=== PATIENT | female | born 1965 | race Caucasian/White ===

== ENCOUNTER 2025-09-13 12:28 | Emergency (ER) | payer OTHER, SELFPAY ==
[2025-09-13] VITALS (10 sets, daily range): BP systolic 127–165; BP diastolic 80–104; BMI 25.6
--- NOTE | 2025-09-13 15:45 | ED.GENMED ---
History of Present Illness
General
Chief Complaint: Headache
Source: patient
Exam Limitations: none
Time Seen by Provider: 09/13/25 14:45
Nursing documentation reviewed up to this point in time: agreed with
History of Present Illness
History of Present Illness:
Patient is a 59-year-old female who presents today for evaluation. Patient has had a headache off and on for the past 1 month. She has been seen by her family doctor several times for evaluation. She completed 2 Z-Paks reports she was treated for
possible sinus infection. She was also given a dose of sumatriptan last night and instructed to take 2 tablets proceeded. She continues to complain of pain to the left head behind her eye. She does have light sensitivity. She denies any trauma.
She denies any vomiting. She does feel some pressure in her cheek. She denies any fever chills nasal congestion. No pain with chewing. No visual disturbance.
Phy Exam
General Physical Exam
General Presentation: no apparent distress
General age: appears stated age
General Skin: warm and dry
General Habitus: normal
General Mental: alert
General Hydration: appears well hydrated
ENT Exam
ENT Exam: EOMI
Eye Exam
Eye Exam: PERRL and EOMI
Eye Exam General: PERRL: bilateral and EOM intact: bilateral
Pupil Exam: Bilateral: round and reactive
Neurological Exam
Neurological Exam: alert, oriented x3, no motor deficits, normal reflexs and no sensory deficits
Jusuts Coma Scale
Eye Opening: Spontaneous
Verbal Response: Oriented
Motor Response: Obeys Commands
GCS Total Score: 15
Cerebellar
Cerebellar Function: normal finger to nose
Musculoskeletal Exam
Musculoskeletal Exam: full ROM
Skin Exam
Skin Exam: normal color and warm/dry
Psychiatric Exam
Psychiatric Exam: normal mood/affect
Course
Orders/Labs/Results
Orders:
Orders
09/13/25 15:43
CT Head W/o Iv Contrast Urgent
Comment:
Reason For Exam: left sided headache
09/13/25 15:44
IV Insert/Care/Rem.- Treatment PRN
0.9% Sodium Chloride 1000 ml [Nss] 1,000 ml IV BOLUS
Diphenhydramine [Benadryl] 25 mg IV NOW STA
Metoclopramide [Reglan] 10 mg IV NOW STA
09/13/25 16:30
Complete Blood Count/With Diff Urgent
Comprehensive Metabolic Panel Urgent
09/13/25 17:43
Ketorolac [Toradol] 15 mg IV NOW STA
09/13/25 19:13
Prednisone [Deltasone] 60 mg PO NOW STA
Rizatriptan Orally Disintegrat [Maxalt Fine Patcher (Orally Disintegrating)] 10 mg PO ONCE ONE
09/13/25 19:28
Valproate Sodium [Depacon] 1,000 mg 0.9% Sodium Chloride 50 ml [Nss] 50 ml IV NOW
Abnormal Lab Results
09/13/25
16:30
MCH 25.3 L pg
(27.0-31.0)
MCHC 30.9 L g/dL
(33.0-37.0)
RDW 14.8 H %
(11.5-14.5)
MPV 11.3 H fL
(7.4-10.4)
Lymphocytes % 19.3 L %
(20.5-51.1)
Sodium 134 L mmol/L
(135-145)
Glucose 100 H mg/dl
(70-99)
AST 43 H U/L
(14-36)
09/13/25 16:30
09/13/25 16:30
Vital Signs
Initial and Last Documented VS:
Initial Vital Signs
Temp Pulse Resp BP Pulse Ox
97.7 F 87 16 165/104 99
09/13/25 12:30 09/13/25 12:30 09/13/25 12:30 09/13/25 12:30 09/13/25 12:30
Last Documented Vital Signs
Temp Pulse Resp BP Pulse Ox
97.7 F 95 14 128/90 95
09/13/25 12:30 09/13/25 22:00 09/13/25 22:00 09/13/25 22:00 09/13/25 22:00
Patient Flow Coordinator consulted with Physician
Patient Flow Coordinator consulted with physician?: Yes
Name of Physician Consulted: Ronald
MDM/Problems Addressed
Differential Diagnosis Includes:
not limited to: headache, migraine
MDM/Problems Addressed:
As documented patient is a 59-year-old female with a headache for 1 month. No trauma afebrile completed 2 rounds of antibiotics for possible sinus infection treated by family doctor no relief. She was given 2 doses of sumatriptan last night by
family doctor but that did not relieve her symptoms. Patient was given Reglan Benadryl and fluids however still complains of headache and was given Toradol. Though the headache has moved from behind her left eye to her forehead she still continues
to complain of headache. No fevers no evidence or symptoms of meningitis. She is uncomfortable because of a headache she is nontoxic.nml neuro exam.
Case reviewed with neurology Dr. Rand who does suggest valproic acid to 1000 mg IV along with rizatriptan 10 mg melt tab and 1 dose of oral prednisone 60 mg.
Will plan to reevaluate after medications. Patient is still pending for CAT scan at this time.([id number])
2034: CT negative. Valproic acid still infusing. Patient feeling better feels that she will be able to go home. We will plan for discharge home with close outpatient follow-up with family doctor
*Radiology
Radiology exam reviewed: radiology read reviewed
*Pulse Oximetry
SaO2: 99
Oxygen Mode of Delivery: Room air
Patient hypoxic: no
*Critical Care Note
Total Time (30-74mins, 75-104mins- exclusive of procedures): Not Applicable
Patient Management
Discussion with other providers: [employer] (neuro DR Rand )
ED Attending Note
-
Portions of this chart may have been created with voice recognition software.� Occasional wrong word or��sound alike� substitutions may have occurred due to the inherent limitations of voice recognition software.
Discharge Plan
Departure
Patient Disposition: Home (Routine Discharge)
Date of Disposition: 09/13/25
Time of Disposition: 22:17
Patient with high blood pressure during this ER visit?: Yes
Condition: Fair
Covid-19: Not Applicable
Discharge Problem:
Headache
Instructions: Headache, Adult (DC), BLOOD PRESSURE
Prescriptions:
No Action
diclofenac sodium 75 MG tablet,delayed release (DR/EC)
75 mg PO BID Qty: 10 0RF
Referrals:
Soren Rand MD [Active, Neurology]
Obinna Lezama DO [Family Provider, Family Practice]
Stand Alone Forms: Return to Work
Activity Restrictions/Additional Instructions:
As discussed please follow-up with family doctor in the next 2 day for reevaluation. In addition please call neurology to make an appointment as soon as possible for reevaluation of your symptoms. Return if any worsening of symptoms.
Interventions
Interventions:
*Risk Screen - Suicide Last Done: 09/13/25 12:30
*General Assessment Last Done: 09/13/25 16:00
*Neglect/Abuse Screening Last Done: 09/13/25 12:30
*ED- Fall Risk Assessment Last Done: 09/13/25 16:00
*ED COVID-19 Vaccine History Last Done: 09/13/25 16:00
*ED Influenza Vaccine History Last Done: 09/13/25 16:00
*Nursing Disposition Last Done: 09/13/25 23:22
ED- Neurological Assessment Last Done: 09/13/25 16:00
Discharge Date and Time
Discharge Date/Time: 09/13/25 23:29
Print Language: GEORGIAN
[2025-09-13] MEDS: NSS 1000 IV (16:18)
[2025-09-13] MEDS: BENADRYL 25 MG IV (16:20)
[2025-09-13] MEDS: REGLAN 10 MG IV (16:21)
[2025-09-13 16:47] LABS: Hematocrit 42.1 % (37.0-47.0); Hemoglobin 13.0 g/dL (12.0-16.0); Mean Corp Hgb Conc. 30.9 g/dL (33.0-37.0); Mean Corpuscular Volume 81.9 fL (81.0-99.0); Nucleated Red Blood Cells % 0 %; Platelet Count 177 10^3/uL (130-400); Red Cell Dist. Width 14.8 % (11.5-14.5)
[2025-09-13 17:02] LABS: ALT (SGPT) 30 U/L (0-35); AST (SGOT) 43 U/L (14-36); Albumin 4.2 g/dl (3.5-5.0); Alkaline Phosphatase 70 U/L (38-126); Blood Urea Nitrogen 14 mg/dl (7-17); Calcium 8.9 mg/dl (8.4-10.2); Carbon Dioxide 27 mmol/L (22-30); Chloride 104 mmol/L (98-107); Estimated Creatinine Clearance 82 ml/min; Glucose 100 mg/dl (70-99); Potassium 4.4 mmol/L (3.5-5.1); Sodium 134 mmol/L (135-145); Total Protein 7.0 g/dl (6.3-8.2); eGFR > 60.00
[2025-09-13] MEDS: TORADOL 15 MG IV (18:25)
[2025-09-13] MEDS: MAXALT MLT (ORALLY DISINTEGRATING) 10 MG PO (19:50)
[2025-09-13] MEDS: DELTASONE 60 MG PO (19:51)
[2025-09-13] MEDS: DEPACON 60 MG IV (19:55)
== END 2025-09-13 23:29 | disposition home or self-care (01) ==
LOC: EMR 12:28
PROVIDERS: Nurse Practitioner; EMERGENCY PHYSICIAN Emergency Medicine; FAMILY PHYSICIAN Family Medicine
DX: R51.9 Headache, unspecified (principal); R03.0 Elevated blood-pressure reading, without diagnosis of hypertension
CPT/HCPCS: 99284; 96365; 96375 ×3; 96361; 70450; 80053; 85025